=== PATIENT | female | born 1955 | race African-American/Black ===

== ENCOUNTER 2018-12-06 09:46 | Emergency (ER) | payer OTHER ==
[~2018-12-06] VITALS: Ht 165.1 cm; Wt 72.6 kg
[2018-12-06 09:46] VITALS: BP 114/77
[~2018-12-06 09:46] MED LIST: CLONAZEPAM 0.50.5 M1 PO; CRESTOR10 MG PO; LEXAPRO 10 MG T10 M1 PO; NORVASC5 MG PO; SYNTHROID75 MCG PO; VALTREX 500 MG500 M1 PO; WELLBUTRIN SR150 MG PO
[2018-12-06] MEDS ORDERED: NORVASC2.5 MG PO (09:52)
[2018-12-06] MEDS ORDERED: VALACYCLOVIR500 MG PO (09:53)
[2018-12-06] MEDS ORDERED: VITAMIN D5000 UNIT PO (09:54)
[2018-12-06] MEDS ORDERED: FEMARA2.5 MG PO (09:54)
[2018-12-06] MEDS ORDERED: MOBIC15 MG PO (10:31)
== END 2018-12-06 11:00 | disposition home or self-care (01) ==
LOC: ER 09:46
DX: S63.682A Other sprain of left thumb, initial encounter (principal); I10 Essential (primary) hypertension; F41.0 Panic disorder [episodic paroxysmal anxiety]; E78.00 Pure hypercholesterolemia, unspecified; E03.9 Hypothyroidism, unspecified; Z85.3 Personal history of malignant neoplasm of breast; Z91.040 Latex allergy status; W01.0XXA Fall on same level from slipping, tripping and stumbling without subsequent striking against object, initial encounter; Y93.89 Activity, other specified; Y92.096 Garden or yard of other non-institutional residence as the place of occurrence of the external cause; Y99.8 Other external cause status

== ENCOUNTER 2020-09-26 12:01 | Emergency (ER) | payer OTHER ==
[~2020-09-26] VITALS: Ht 167.6 cm; Wt 74.8 kg
[~2020-09-26 12:01] MED LIST changes: +FEMARA2.5 MG PO; +MOBIC15 MG PO; +NORVASC2.5 MG PO; +VALACYCLOVIR500 MG PO; +VITAMIN D5000 UNIT PO
[2020-09-26] MEDS ORDERED: MOBIC7.5 MG PO (12:59)
[2020-09-26 13:24] VITALS: BP 130/70
== END 2020-09-26 13:27 | disposition home or self-care (01) ==
LOC: ER 12:01
DX: M25.531 Pain in right wrist (principal); I10 Essential (primary) hypertension; E03.9 Hypothyroidism, unspecified; E78.5 Hyperlipidemia, unspecified; Z90.89 Acquired absence of other organs; Z79.899 Other long term (current) drug therapy; Z91.040 Latex allergy status